=== PATIENT | female | born 1950 | race Caucasian/White ===

== ENCOUNTER 2017-03-09 20:49 | Inpatient (IN) | payer MEDICARE ==
[~2017-03-09] VITALS: Ht 160 cm; Wt 77.9 kg
[2017-03-09] VITALS (8 sets, daily range): BP systolic 129–200; BP diastolic 92–120
[~2017-03-09 20:49] MED LIST: VICODIN 5/500 505 MG PO
[2017-03-09 21:19] LABS: BASO # 0.1 10*3/uL (0.0-0.1); BASO % 0.7 % (0.0-1.0); EOS # 0.1 10*3/uL (0.0-0.4); EOS % 0.8 % (1.0-4.0); HEMATOCRIT 41.3 % (37.0-47.0); HEMOGLOBIN 13.2 g/dl (12.0-16.0); LYMPH % 23.3 % (27.0-41.0); MEAN CELL VOLUME 85.3 fl (81.0-99.0); MEAN CORPUSCULAR HGB 27.3 pg (27.0-31.0); MEAN PLATELET VOLUME 10.2 fl (9.6-12.3); MONO # 0.6 10*3/uL (0.1-1.0); MONO % 6.9 % (3.0-9.0); PLATELET COUNT AUTOMATED 284 10*3/uL (130-400); RED BLOOD COUNT 4.84 10*6/uL (4.10-5.10); RED CELL DISTRI WIDTH 14.9 % (0-14.5); WHITE BLOOD COUNT 8.8 10*3/uL (4.8-10.8)
[2017-03-09 21:27] LABS: ACT PARTIAL THROMBO TIME 25.5 SECONDS (20.8-31.5); INTERNATIONAL NORM RATIO 1.1 (2.0-3.5)
[2017-03-09 21:36] LABS: ALBUMIN 3.5 gm/dl (3.1-4.5); CREATININE 1.72 mg/dL (0.55-1.02); MAGNESIUM 2.2 mg/dL (1.5-2.1); POTASSIUM 4.6 mmol/L (3.5-5.1); TOTAL PROTEIN 6.5 gm/dL (6.4-8.2)
[2017-03-09 21:40] LABS: TROPONIN I 0.5 ng/ml (<0.045)
--- NOTE | 2017-03-09 22:26 | NUR ---
CHEST PAIN IS A LITTLE BETTER SINCE NITRO PASTE WAS APPLIED. NENA WATSON RN
--- NOTE | 2017-03-09 23:30 | NUR ---
NENA ROSAS IN ER STATED DR BA WAS NOTIFIED OF CONSULT BY ER
--- NOTE | 2017-03-09 23:30 | NUR ---
A 67yr old female, admitted to [facility], under the services of GAL Solorzano DO with a diagnosis of Acute coronary syndrome. Chief complaint is chest pain and shortness of breath x 2 days. Patient arrived via stretcher from ER. Monitor applied. Initial assessment completed. Vital signs taken and recorded. See assessment for past medical history, medications and allergies. Patient and/or family oriented to unit. [facility] visitation policy reviewed. Clothing/patient valuable form completed. Patient arrived with Heparin drip infusing at 12units/kg/hr or 9.4ml/hr after pts weight obtained via bed. Dr Logan entered orders electronically prior to patient being brought from ER. EDEN NEWMAN L
[2017-03-10 04:00] VITALS: BP 172/100
[2017-03-10 06:44] LABS: BASO # 0.1 10*3/uL (0.0-0.1); BASO % 0.7 % (0.0-1.0); EOS % 0.4 % (1.0-4.0); HEMATOCRIT 38.3 % (37.0-47.0); HEMOGLOBIN 12.4 g/dl (12.0-16.0); LYMPH # 2.5 10*3/uL (1.3-4.4); LYMPH % 36.7 % (27.0-41.0); MEAN CELL VOLUME 83.8 fl (81.0-99.0); MEAN CORPUSCULAR HGB 27.1 pg (27.0-31.0); MEAN CORPUSCULAR HGB CONC 32.4 g/dl (33.0-37.0); MEAN PLATELET VOLUME 10.6 fl (9.6-12.3); MONO # 0.5 10*3/uL (0.1-1.0); MONO % 6.7 % (3.0-9.0); NEUT # 3.7 10*3/uL (2.3-7.9); NEUT % 55.1 % (47.0-73.0); PLATELET COUNT AUTOMATED 236 10*3/uL (130-400); RED BLOOD COUNT 4.57 10*6/uL (4.10-5.10); RED CELL DISTRI WIDTH 14.9 % (0-14.5); WHITE BLOOD COUNT 6.7 10*3/uL (4.8-10.8)
[2017-03-10 06:56] LABS: INTERNATIONAL NORM RATIO 1.2 (2.0-3.5)
[2017-03-10 07:43] LABS: CREATININE 1.21 mg/dL (0.55-1.02); POTASSIUM 3.8 mmol/L (3.5-5.1); THYROID STIM HORMONE (HS) 2.15 uIU/ml (0.358-4.75)
[2017-03-10 08:00] VITALS: BP 169/89
--- NOTE | 2017-03-10 08:00 | NUR ---
RESTING IN BED. COMPLAINS OF RIGHT SIDED CHEST PAIN THAT RADIATES INTO BACK. BP 169/89. PULSE OX 96% ON ROOM AIR. LUNGS CLEAR BILATERALLY. SCABBED AREAS NOTED TO ARMS, LEGS AND ABDOMEN. AFEBRILE.
[2017-03-10 08:31] LABS: VITAMIN D, 25-HYDROXY 17.4 ng/mL (30-100)
[2017-03-10 12:00] VITALS: BP 165/93
[2017-03-10 16:00] VITALS: BP 135/93
[2017-03-10 20:00] VITALS: BP 144/84
--- NOTE | 2017-03-10 20:16 | NUR ---
CALLED DOCTOR BROOKS WITH RESULTS OF CTA OF THE CHEST HE ORDERED BNP FOR AM TO HAVE DONE BEFORE TRANSFER TO [facility] FOR CATH.
[2017-03-10 23:56] VITALS: BP 114/49
[2017-03-11 04:00] VITALS: BP 147/81
[2017-03-11 05:57] LABS: BASO # 0.1 10*3/uL (0.0-0.1); BASO % 0.8 % (0.0-1.0); EOS # 0.1 10*3/uL (0.0-0.4); EOS % 1.4 % (1.0-4.0); HEMATOCRIT 38.4 % (37.0-47.0); HEMOGLOBIN 12.4 g/dl (12.0-16.0); LYMPH # 2.5 10*3/uL (1.3-4.4); LYMPH % 31.8 % (27.0-41.0); MEAN CELL VOLUME 86.3 fl (81.0-99.0); MEAN CORPUSCULAR HGB 27.9 pg (27.0-31.0); MEAN CORPUSCULAR HGB CONC 32.3 g/dl (33.0-37.0); MEAN PLATELET VOLUME 11.1 fl (9.6-12.3); MONO # 0.7 10*3/uL (0.1-1.0); MONO % 8.8 % (3.0-9.0); NEUT # 4.4 10*3/uL (2.3-7.9); NEUT % 56.9 % (47.0-73.0); PLATELET COUNT AUTOMATED 235 10*3/uL (130-400); RED BLOOD COUNT 4.45 10*6/uL (4.10-5.10); RED CELL DISTRI WIDTH 15.4 % (0-14.5); WHITE BLOOD COUNT 7.8 10*3/uL (4.8-10.8)
[2017-03-11 06:16] LABS: CREATININE 1.44 mg/dL (0.55-1.02); POTASSIUM 3.7 mmol/L (3.5-5.1)
--- NOTE | 2017-03-11 06:17 | NUR ---
PATIENT REPORT CALLED TO TANGELA AT [employer].
== END 2017-03-11 05:35 | disposition short-term general hospital (02) | DRG 280 ==
LOC: ED 20:49 → ICCU 22:00 → EDHOLD 22:00 → ICCU 22:22
PROVIDERS: Family Medicine; Internal Medicine; Student in an Organized Health Care Education/Training Program; ADMIT Emergency Medicine
DX: I21.4 Non-ST elevation (NSTEMI) myocardial infarction (principal); N17.0 Acute kidney failure with tubular necrosis; I11.0 Hypertensive heart disease with heart failure; I50.20 Unspecified systolic (congestive) heart failure; I25.10 Atherosclerotic heart disease of native coronary artery without angina pectoris; E55.9 Vitamin D deficiency, unspecified; B88.8 Other specified infestations; R73.03 Prediabetes; L29.9 Pruritus, unspecified; I25.5 Ischemic cardiomyopathy; Z90.49 Acquired absence of other specified parts of digestive tract; Z88.5 Allergy status to narcotic agent; Z81.1 Family history of alcohol abuse and dependence; Z82.49 Family history of ischemic heart disease and other diseases of the circulatory system; Z82.3 Family history of stroke; Z98.51 Tubal ligation status